=== PATIENT | male | born 1940 | race Caucasian/White ===

== ENCOUNTER → 2016-10-05 | Day surgery (SDC) | payer BC, MEDICARE, OTHER ==
[2016-09-22 08:04] VITALS: Ht 180.3 cm; Wt 81.8 kg
[~2016-10-05] VITALS: Ht 180.3 cm; Wt 81.8 kg
[~2016-10-05] MED LIST: ACETAMINOPHEN 325 MG TAB PO PRN; ALPR0.25 PO; ATROPINE SULFATE 1% OP OINT PER APPLICATION CHARGE ONE; ATROPINE SULFATE 1% OP SOLN 2 ML BTL ONE; AcetylCHOLine CHL OP SOL 1:100 2 ML BTL ONE; BRIMONIDINE TART 0.2% OP SOLN PER DROP CHARGE ONE; EpINEphrine INJ 1MG/ML AMP 1 MG/ML AMP ONE; FENTANYL CITRATE INJ 50 MCG/1 ML 2 ML VIAL ONE; LACTATED RINGER'S 1000ML 500 ML IV SCH; LIDOCAINE 4% OP SOLN DROP CHARGE ONE; LIDOCAINE 4% OP SOLN DROP CHARGE OPL SCH; LIDOCAINE HCL 1% MPF 2 ML VIAL ONE; MIDAZOLAM HCL 1 MG/ML 2ML VIAL ONE; MOXIFLOXACIN OPH SOLN PER DROP CHARGE ONE; POVIDONE-IODINE OP SOLN 30 ML BTL ONE; PROPARACAINE 0.5% OP SOLN PER DROP CHARGE OPL SCH; SIMV40TA2 PO; SODI2SOL OPL; SODI5OIN4 OPL; TIMOLOL MALEATE OPB; TOBRAMYCIN/DEXAMETHASONE OPH OINT PER APPLN CHARGE ONE
[2016-10-05] MEDS: PHENYLEPHRINE HCL 2.5% OP SOLN PER DROP CHARGE OPL SCH ×2 (08:24→08:29)
[2016-10-05] MEDS: TROPICAMIDE 1% OP SOLN PER DROP CHARGE OPL SCH ×2 (08:25→08:30)
[2016-10-05] MEDS: CYCLOPENTOLATE HCL 1% OP SOLN PER DROP CHARGE OPL SCH ×2 (08:26→08:31)
[2016-10-05] MEDS: KETOROLAC 0.5% OP SOLN PER DROP CHARGE OPL SCH ×2 (08:27→08:32)
[2016-10-05] MEDS: MOXIFLOXACIN OPH SOLN PER DROP CHARGE OPL SCH ×2 (08:28→08:41)
--- NOTE | 2016-10-05 08:45 | History & Physical Bridge - [place] ---
H&P Re-Evaluation Bridge Note: I have examined the patient, reviewed the History & Physical and in the interval since the performance of the History & Physical I have noted the following changes of clinical significance: No changes noted
--- NOTE | 2016-10-05 11:00 | Discharge Instructions-SurgCtr ---
Discharge Instructions Visit Reason for Visit: Left Eye Endothelial Corneal Dystrophy Discharge Discharge Diagnosis / Problem: Cataract and Fuchs Dystrophy left eye Discharge Goals Goal(s): Improve function Activity Recommendations Activity Limitations: per Instructions/Follow-up section Lifting Limitations: no more than 5 pounds Anesthesia . Post Anesthesia Instructions: If you have had General Anesthesia or IV Sedation: * Do not drive today. * Resume driving when surgeon permits. * Do not make important decisions or sign legal documents today. * Call surgeon for: 1. Temperature elevations greater than 101 degrees F. 2. Uncontrollable pain. 3. Excessive bleeding. 4. Persistent nausea and vomiting. 5. Medication intolerance (nausea, vomiting or rash). * For nausea and vomiting use only clear liquids such as: tea, soda, bouillon until nausea subsides, then gradually increase diet as tolerated. * If you have any concerns or questions, call your surgeon's office. If physician is unavailable and it is an emergency, call 911 or go to the nearest emergency room. . Instructions / Follow-Up Instructions / Follow-Up ACTIVITY RECOMMENDATIONS: * Bedrest (eyes to the luke) MEDICATIONS: Resume previous medications unless instructed otherwise by your surgeon. Eye drops (today and tomorrow): Gatifloxacin - one drop in operative eye every 2 hours while awake Prednisolone 1% - one drop in operative eye every 2 hours while awake Ilevro - one drop operative eye 1 times daily SPECIAL CARE INSTRUCTIONS: * If any problems or concerns, please call Dr. Mcfarland's office at . * Keep plastic shield taped over eye to sleep at night. * Keep plastic shield taped over eye except to administer eye drops. * Keep plastic shield on until office visit the following day. FOLLOW UP VISIT: Follow-up with Dr. Mcfarland in the [place] office as scheduled. If not already scheduled, please call the office at . Diet Recommendations Home Diet: resume previous diet Procedures Procedures Performed: Left Eye Cataract Extraction, Descements Stripping Automated Endothelial Keratoplasty Pending Studies Studies pending at discharge: yes List of pending studies: corneal donor rim culture Medical Emergencies . Who to Call and When: Medical Emergencies: If at any time you feel your situation is an emergency, please call 911 immediately. . Non-Emergent Contact Non-Emergency issues call your: [employer] . . "Provider Documentation" section prepared by Krzysztof Mcfarland.
--- NOTE | 2016-10-05 11:01 | [facility] Post Operative Brief Note ---
Immediate Operative Summary Operative Date Oct 05, 2016. Pre-Operative Diagnosis Left Eye Cataract, Endothelial Corneal Dystrophy Post-Operative Diagnosis Same Procedure(s) Performed Left Eye Cataract Extraction, Descements Stripping Automated Endothelial Keratoplasty Surgeon Dr Mcfarland Tube Inspector Surgeon(s) None Estimated Blood Loss 0ml Findings cataract and fuchs dystrophy left eye Specimens Corneal Donor Rim for Routine Culture, Gram Stain and Aerobic Complication(s) None Disposition Recovery Room / PACU
--- NOTE | 2016-10-05 11:30 | Anesthesia Progress Nt - [facility] ---
Anesthesia Post Op Note Date & Time Oct 05, 2016 at 11:30 Vital Signs Pain Intensity: 0 Vital Signs Past 12 Hours Date Time Temp Pulse Resp B/P Pulse Ox O2 Delivery O2 Flow Rate FiO2 10/05/16 11:22 78 16 169/81 97 Room Air 10/05/16 11:00 36.8 77 20 177/91 97 Room Air 10/05/16 08:12 36.3 64 16 152/69 98 Room Air Notes Mental Status: alert / awake / arousable, participated in evaluation Nausea / Vomiting: adequately controlled Pain: adequately controlled Airway Patency, RR, SpO2: stable & adequate BP & HR: stable & adequate Hydration State: stable & adequate Anesthetic Complications: no major complications apparent
--- NOTE | 2016-10-05 11:39 | OPERATIVE REPORT ---
DATE OF OPERATION: 10/05/2016 PREOPERATIVE DIAGNOSIS: Cataract and Fuchs dystrophy, left eye. POSTOPERATIVE DIAGNOSIS: Same. PROCEDURES PERFORMED: Phacoemulsification cataract extraction with intraocular lens placement and Descemet stripping automated endothelial keratoplasty, left eye. COMPLICATIONS: None. ESTIMATED BLOOD LOSS: None. ANESTHESIA: Local with sedation. DESCRIPTION OF PROCEDURE: After informed consent was obtained in the holding area, attention was first turned to the donor cornea. It was placed endothelial side up on the donor trephine and trephinated with an 8.0 mm Carmen trephine by myself. It was covered in Optisol and then set aside. The patient was then brought back to the operating room where cardiac monitoring leads and oxygen by nasal cannula was administered by anesthesia. Gentle IV sedation was given, and the patient's left eye was prepped and draped in the usual sterile fashion. A wire lid speculum was placed in the left eye and the operating microscope swung into position. Using 0.12 forceps and a supersharp blade, a paracentesis port was made at the 5 o'clock position of the patient's left eye. 1% nonpreserved lidocaine was injected into the anterior chamber for anesthesia. A 2.2 mm keratome blade was then used to make a shelved clear cornea incision at the 3 o'clock position of the patient's left eye. The anterior chamber was filled with Healon and a curvilinear capsulorrhexis was performed with the cystotome and Utrata forceps. BSS on a hydrodissection cannula was then used to hydrodissect the lens nucleus away from the capsular bag. The phacoemulsification handpiece was then used in a stop and chop fashion to remove the lens nucleus. Irrigation-aspiration handpiece was then used to remove the cortical material from the eye. The eye was then filled with Healon, the main incision enlarged for 4 mm and a Bausch [employer] Lomb Lomb MX60 21.0 Diopter intraocular lens was injected into the capsular bag. The cornea surface was then marked with a previously used trephine and a reversed Sinskey hook was used to score and strip Descemet's membrane from within the marking. The Descemet stripper removed Descemet's membrane from the eye and the stromal proof passer was used in the periphery of the stripped area to roughen the stromal bed. The irrigation-aspiration handpiece was then used to remove the viscoelastic material from the eye and Miochol was injected into the eye to constrict the pupil. The donor cornea was then placed endothelial side up on the EndoSerter platform and a drop of Healon was placed on it. It was then retracted into the EndoSerter which was then used to insert the graft into the eye. It was unfolded underneath BSS and air and a single 10-0 nylon suture was placed through the primary incision. A complete air fill of the eye was then achieved and the graft centered and air fill was held for 15 minutes. After that time, the interface was milked using the [email or web address] LASIK roller and another 10 minutes elapsed. At this time atropine was placed on the eye, and a partial air fluid exchange was done leaving behind a 50% air fill. The placed suture was buried and ReSure sealant was placed over the paracentesis and the primary incision. The wounds were noted to be watertight. The wire lid speculum was removed from the eye. Atropine, Vigamox and then TobraDex ointment were placed on the eye and the eye was shielded. The patient was sent to recovery room in stable condition to lie flat for an hour prior to being discharged to home. I attest to the content of the Intraoperative Record and any orders documented therein. Any exceptions are noted below. BREANNA
[2016-10-05 11:50] VITALS: BP 162/83; PULSE 83; TEMP 36.6; O2SAT 96
== END | disposition home or self-care (01) ==
LOC: X.SURG 08:10
PROVIDERS: ATTEND Ophthalmology
DX: H26.9 Unspecified cataract (principal); H18.51 Endothelial corneal dystrophy; J45.909 Unspecified asthma, uncomplicated; Z68.25 Body mass index [BMI] 25.0-25.9, adult; Z88.1 Allergy status to other antibiotic agents; Z90.89 Acquired absence of other organs; Z83.3 Family history of diabetes mellitus